=== PATIENT | female | born 1990 | race Caucasian/White ===

== ENCOUNTER 2022-03-31 05:58 | Observation (INO) ==
--- NOTE | 2022-03-29 08:35 | Anesthesiology Consultation ---
Date of Service March 29, 2022 Assessment & Plan (1) Encounter for pre-operative examination: - COVID screening: Per assessment on 03/29: No known COVID-19 positive contacts (x3 weeks) or current COVID-19 related symptoms. Travel screen- [place] for 03/08. Travel to [facility] with family 03/11-03/18. Patient vaccinated. Preop Covid test done 03/28 (S) was negative. - Check test AM DOS Chart Review Chart Review: Acceptable Risk for Surgery (pending evaluation AM DOS) and Patient NOT seen in Pre Admission Testing History Surgery Operation Date: 03/31/22 07:30 Proposed Procedures p Robotic Assisted Laparoscopic Myomectomy and Possible Mini-Laparotomy - Sally Radford Height/Weight Height: 5 ft 9 in Weight: 79.379 kg Allergies Allergy/AdvReac Type Severity Reaction Status Date / Time nickel Allergy Rash Verified 03/24/22 10:21 Medications Home Medications Medication Instructions Recorded Confirmed Last Taken ascorbic acid (vitamin C) 250 mg 500 mg PO QAM 03/24/22 03/24/22 Unknown chewable tablet (Vitamin C) azelaic acid 15 % topical gel 1 applic topical QAM 03/24/22 03/24/22 Unknown [id number] 1 mg 2 tab PO QAM 03/24/22 03/24/22 Unknown tablet Past Medical History Medical History Asthma No inhaler History of phobia "Extreme fear of needles, hasn't passed out yet, but does get light headed and warm. Can't even see a needle or her body reacts." Hx of acne Uterine fibroid Past Surgical History Surgical History Hx of hernia repair As baby Hx of laparoscopy 05/2015, PSH, laparoscopic myomectomy Hx of wisdom tooth extraction Social History Smoking Status: Never smoker Do You Dip or Chew Tobacco: No Hx Alcohol Use: Yes Alcohol type: beer, wine and hard liquor alcohol intake frequency: a few times a month Hx Substance Use: No Testing Laboratory Results 03/28/22 WBC 6.53 H/H 8.8/31.4 (Anemia in setting of heavy menstrual bleeding- reason for upcoming surgery. At anesthesiologist discretion AM DOS if recheck level needed. No comparison/baseline labs) PLATELETS 325 SODIUM 140 POTASSIUM 4.1 CHLORIDE 102 CO2 26 BUN 8 CREATININE 0.7 GLUCOSE 76
[2022-03-31] MEDS ORDERED: ceFAZolin 2000MG 2,000 MG/15 ML SYR IV SCH (06:00)
[2022-03-31] MEDS ORDERED: miSOPROStoL 200 MCG TAB PR SCH (06:00)
[2022-03-31] MEDS ORDERED: TRANEXAMIC ACID IV SCH (06:00)
[2022-03-31] MEDS ORDERED: LACTATED RINGER'S 1,000 ML IV SCH (06:00)
[2022-03-31] MEDS ORDERED: LR 15ML/HR IV SCH (06:00)
[2022-03-31] MEDS ORDERED: SODIUM CHLORIDE 0.9% IV SCH (06:00)
[2022-03-31] MEDS ORDERED: PROPOFOL IV EMULSION 10 MG/ML 20 ML VIAL IV ONE (06:31)
[2022-03-31] MEDS ORDERED: ROCURONIUM BROMIDE 10 MG/ML 5 ML VIAL IV ONE ×2 (06:31→08:06)
[2022-03-31] MEDS ORDERED: fentaNYL citrate 100 MCG/2 ML VIAL ONE ×3 (06:32→12:14)
[2022-03-31] MEDS ORDERED: MIDAZOLAM HCL 1 MG/ML 2ML VIAL ONE (06:32)
--- NOTE | 2022-03-31 06:46 | History & Physical Bridge Note ---
Date of Service March 31, 2022 History & Physical Bridge Note I have examined the patient, reviewed the History & Physical and in the interval since the performance of the History & Physical I have noted the following changes of clinical significance: no changes noted
[2022-03-31] MEDS ORDERED: VASOPRESSIN 20 UNIT/ML VIAL ONE (06:56)
[2022-03-31] MEDS ORDERED: BUPIVACAINE 0.5 % 5 MG/1 ML MPF 30ML VIAL ONE (06:56)
[2022-03-31] MEDS ORDERED: ONDANSETRON INJ 2 MG/ML 2 ML VIAL IV PRN ×2 (07:01→19:33)
[2022-03-31] MEDS ORDERED: ATROPINE SULFATE 0.1 MG/ML 10ML SYR IV PRN (07:01)
[2022-03-31] MEDS ORDERED: HYDROmorphone INJ 2 MG/ML SYR/VIAL IV PRN (07:01)
[2022-03-31] MEDS ORDERED: fentaNYL citrate 100 MCG/2 ML VIAL IV PRN (07:01)
[2022-03-31] MEDS ORDERED: ePHEDrine sulfate 50 MG/ML AMP IV PRN (07:01)
[2022-03-31 07:07] LABS: Pregnancy Test, Serum Negative (Negative)
[2022-03-31] MEDS ORDERED: HYDROmorphone INJ 2 MG/ML SYR/VIAL ONE (07:52)
[2022-03-31] MEDS ORDERED: DEXAMETHASONE SOD INJ 4 MG/ML VIAL ONE (08:08)
[2022-03-31] MEDS ORDERED: ONDANSETRON INJ 2 MG/ML 2 ML VIAL ONE (08:08)
[2022-03-31] MEDS ORDERED: TISSEEL FIBRIN SEALANT 10ML TOP ONE (08:58)
[2022-03-31] MEDS ORDERED: PHENYLEPHRINE 100MCG/ML 5ML SYR ONE (10:44)
[2022-03-31] MEDS ORDERED: ePHEDrine sulfate 50 MG/ML SYR ONE (11:12)
[2022-03-31] MEDS ORDERED: SODIUM CHLORIDE 0.9% 250 ML IV PRN ×2 (11:21→15:19)
[2022-03-31] MEDS ORDERED: ePHEDrine sulfate 50 MG/ML AMP ONE (11:48)
[2022-03-31] MEDS ORDERED: SODIUM CHLORIDE 0.9% 1000ML 1,000 ML IV SCH (13:00)
--- NOTE | 2022-03-31 13:00 | Operative Report ---
Post Operative Report Pre & Post Diagnosis Operation Date: 03/31/22 07:30 Pre-Op Diagnosis: Multifibroid Uterus, Heavy Menstrual Bleeding Post-Op Diagnosis: Multifibroid Uterus, Heavy Menstrual Bleeding I identified the patient and participated in the time-out.: Yes Procedure Operation Date: 03/31/22 07:30 Actual Procedures p Robotic Assisted Laparoscopic Myomectomy and Mini Laparotomy(Not Applicable) - Sally Radford Surgeon Sally Radford Telepathist Rand Stein PA-C Estimated Blood Loss 1,300 Findings See Below 1. Uterus sounded to 10 cm with a uterine sound 2. Uterus approximately 18 cm with a a large anterior fibroid down to the submucosal region 3. Normal appearing fallopian tubes bilaterally 4. Normal appearing right ovary 5. Left ovary with multiple appearing simple cysts 6. Anterior and posterior cul-de-sac were free of adhesions or lesions 7. Normal appearing liver edge Fluids See Anesthesia Report Specimens Uterine fibroid Drains Corea catheter: Urine: 700 ml Anesthesia Type General Complications None Indications 31 yo P0 with an enlarged fibroid uterus and heavy menstrual bleeding desiring surgical management via laparoscopic myomectomy. Description of Procedure Under GA in the dorsal lithotomy position, the patient was prepped and draped in the usual sterile fashion. Beginning at the vagina, a corea catheter was inserted under sterile conditions and left in situ for the remainder of the case. A weighted speculum was then placed in the vagina and with the help of a right angle retractor the cervix was visualized and grasped anteriorly with a single tooth tenaculum.The uterus was sounded to10 cm with a uterine sound.The cervical os was dilated up. An Advincula uterine manipulator was inserted. The weighted speculum was then removed. Attention was then turned to the abdomen. 0.5% marcaine solution was used for infiltration of all port sites. Beginning in the subumbilical area, the skin was first infiltrated with ~ 2 cc of themarcaine solution, then a8mm incision was made through the skin with a #11 blade. Direct entry with the robotic 8 mm trocar, sleeve, and 5 mm laparoscope was made into the peritoneal cavity.The opening pressure was <8 mmHg. The peritoneal cavity was insufflated with CO2 gas to a maximum pressure of 20 mmHg. Examination of the peritoneal cavity revealed no signs of injury from entry and the above notedanatomical structures. The patient was then placed in steep Trendelenburg and four [id number] robotictrocars were placed.The economic research assistant port was placed in the RUQ with a 11 mm trocar.All trocars placed instandard technique, taking care to avoid the epigastric vessels. All trocars were placed under direct visualization with no inadvertent damage to underlying structures. The uterus was upheld from below and revealed an enlarged fibroid uterus, normal fallopian tubes, andovaries with a polycystic appearance. The Parudii robot was docked. The uterine fibroid was then infiltrated with a dilute solution of vasopressin. The fibroid was then scored in a horizontal fashion with monopolar scissors down to the level of the fibroid fibers. The fibroid was then exposed and a laparoscopic single tooth tenaculum was used to grasp the fibroid. With the assistance of the monopolar scissors and the bipolar forceps the fibroid was methodically dissected away from its uterine attachment. Traction counter traction was also used to excise the fibroid. Once the fibroid was excised from its uterine attachment, decision was made to proceed with a mini-laparotomy secondary to fibroid size and bleeding from the uterine bed. The robot was undocked. A small Pfannenstiel skin incision was made with a scalpel. This was carried through the underlying layer of fascia with a bovie. The fascia was incised in the midline and the fascial incision was then extended laterally in both directions with the Gillette scissors. The superior aspect of the fascial incision was then grasped with Cecilia clamps, tented up, and dissected off the underlying layer of rectus muscle bluntly. It was then dissected in the middle with the Gillette scissors. The inferior aspect of this incision was addressed in a similar manner. The rectus muscles were in the midline bluntly. The peritoneum was identified with hemostat clamps, tented up, and entered sharply with the Metzenbaum scissors. The peritoneal incision was then extended superiorly and inferiorly. An Lambert retractor was then placed inside the pelvic cavity. The fibroid was then cored out of the pelvis using an 11 blade scalpel and cutting in a c-fashion until removed completely. Excessive blood loss noted with extensive fibroid removal. Patient was transfused 1 unit PRBCs intraoperatively. The uterus was then exteriorized and closed in three layers with 0 V loc in a running fashions. The uterine serosa was closed with 0 Vicryl in a baseball stitch. Hemostasis was achieved. The uterus placed back into the pelvic cavity and the Lambert retractor was removed. The fascia was closed with 0 Vicryl in a running fashion. Next, the Emilia's fascia was closed with 3-0 Vicryl in an interrupted fashion and the skin was closed with 4-0 monocryl in a running subcuticular fashion. The incision was then dressed with 4 x 4 and bandaged appropriately. Attention was returned laparoscopically, the pelvis was copiously irrigated and suctioned. Tisseal was placed along the uterine incision site. Hemostasis was again appreciated. The RUQ 11 mm trocar (economic research assistant port) was removed. The fascia was closed with 0 Vicryl on a Amadou Nicole. All ports were removed under direct visualization and hemostasis noted. All the incision sites were then closed with 4-0 monocryl sutures in a subcuticular fashion and dermabond. The uterine manipulator was removed without incident. The corea catheter remained in place. At the end of the procedure, all sponges, instruments, and sharps were counted and correct. Estimated blood loss was 1300ml. The patient was taken to recovery in stable condition. My Telepathist was necessary throughout the procedure for uterine manipulation, retraction, handling of the laparoscope and laparoscopic instruments to ensure adequate visualization, gentle tissue manipulation, and hemostasis. Recommend sections for any future pregnancies/deliveries. DO NOT labor (contractions). I attest to the content of the Intraoperative Record and any orders documented therein. Any exceptions are noted below.
--- NOTE | 2022-03-31 13:00 | Post Operative Brief Note ---
Immediate Post Op Note v1 Date of Surgery March 31, 2022 Pre & Post Diagnosis Operation Date: 03/31/22 07:30 Pre-Op Diagnosis: Multifibroid Uterus, Heavy Menstrual Bleeding Post-Op Diagnosis: Multifibroid Uterus, Heavy Menstrual Bleeding I identified the patient and participated in the time-out.: Yes Procedure Operation Date: 03/31/22 07:30 Actual Procedures p Robotic Assisted Laparoscopic Myomectomy and Mini Laparotomy(Not Applicable) - Sally Radford Surgeon Sally Radford Information Clerk Cashier Rand Stein PA-C Estimated Blood Loss 1,300 Findings Consistent with Post-Op Diagnosis Drains Morse Catheter (18 Fr. Morse catheter inserted by Rand Stein PA-C without difficulty. Draining clear yellow urine. Anesthesia to monitor urine output. )
[2022-03-31] MEDS ORDERED: ALBUT/IPRATROP 3MG/0.5MG NEB 3 ML VIAL NEB STA (13:36)
[2022-03-31] MEDS ORDERED: ALBUT/IPRATROP 3MG/0.5MG NEB 3 ML VIAL ONE (13:38)
--- NOTE | 2022-03-31 14:03 | Anesthesiology Progress Note ---
Date of Service March 31, 2022 Anesthesia Post Procedure Vital Signs Vital Signs: Temp Pulse Resp BP BP Pulse Ox O2 Del Method 03/31/22 13:00 108 H 20 123/58 L 100 Oxymask 03/31/22 12:52 36.3 C L 108 H 17 117/50 L 100 Oxymask 03/31/22 06:50 36.5 C 107 H 18 146/95 H 99 Room Air O2 Flow Rate 03/31/22 13:00 5 03/31/22 12:52 5 03/31/22 06:50 Pain Intensity Head: Pain Intensity: 2 Transfer of Care Handoff Completed per policy Notes Mental Status: alert / awake / arousable and participated in evaluation Patient Amnestic to Procedure: Yes Nausea / Vomiting: adequately controlled Pain: adequately controlled Airway Patency, RR, SpO2: stable & adequate BP & HR: see Notes below (pt is tachycadric. most likely 2/2 acute blood loss. pt recieved one unit PRBC. pt is young and can tolerate tachycardia. repeat cbc in a few hours) Hydration State: stable & adequate Anesthetic Complications: no major complications apparent and Pt Satisfied with anesthetic care
[2022-03-31 15:15] LABS: Hematocrit (blood only) 23.7 % (34.1-44.9)
[2022-03-31] MEDS: ACETAMINOPHEN 325 MG TAB PO SCH ×3 (15:25→19:04)
[2022-03-31] MEDS: IBUPROFEN 600 MG TAB PO SCH ×3 (15:26→19:04)
[2022-03-31] MEDS ORDERED: ACETAMINOPHEN 1000 MG/100 ML IV IV PRN (18:48)
[2022-03-31] MEDS: oxyCODONE HCL IR 5 MG TAB (IMMEDIATE RELEASE) PO PRN (19:01)
[2022-03-31] MEDS: SIMETHICONE 80 MG CHEW PO SCH (19:04)
[2022-03-31] MEDS ORDERED: ACETAMINOPHEN 1,000 MG/100 ML VIAL IV PRN (19:15)
[2022-03-31] MEDS: LACTATED RINGER'S 1,000 ML IV SCH (19:49)
[2022-03-31 19:58] LABS: Hematocrit (blood only) 29.2 % (34.1-44.9); Hemoglobin 8.8 g/dl (12.0-16.0); Mean Corpuscular Hgb Conc 30.1 g/dL (32.0-36.0); Mean Corpuscular Volume 76.2 fL (80.0-100.0); Mean Platelet Volume 10.4 fL (9.4-12.3); Platelet Count 338 K/uL (130-400); RDW Coefficient of Variation 22.4 % (11.5-14.5); RDW Standard Deviation 60.8 fL (36.4-46.3); Red Blood Count 3.83 M/uL (3.93-5.22); White Blood Count 20.62 K/ul (4.8-10.8)
[2022-03-31 20:12] LABS: Anisocytosis Present; Basophils # (auto) 0.03 K/uL (0-0.2); Basophils % (auto) 0.1 %; Immature Granulocytes # (auto) 0.08 K/uL (0.00-0.02); Immature Granulocytes % (auto) 0.4 %; Lymphocytes # (auto) 0.68 K/uL (1.2-3.4); Lymphocytes % (auto) 3.3 %; Monocytes # (auto) 1.59 K/uL (0.24-0.82); Monocytes % (auto) 7.7 %; Neutrophils # (auto) 18.24 K/uL (1.4-6.5); Neutrophils % (auto) 88.5 %
[2022-03-31] MEDS ORDERED: PROMETHAZINE HCL 12.5 MG in SODIUM CHLORIDE 0.9% 50 ML IV PRN (21:25)
[2022-03-31] MEDS: MoRPHine SULFATE 4 MG/ML 1 ML CARP\\VIAL IV PRN (21:41)
[2022-03-31] MEDS: DOCUSATE SODIUM 100 MG CAP PO SCH (21:42)
[2022-04-01] MEDS: SIMETHICONE 80 MG CHEW PO SCH ×4 (00:59→17:05)
[2022-04-01] MEDS: MoRPHine SULFATE 4 MG/ML 1 ML CARP\\VIAL IV PRN (02:05)
[2022-04-01] MEDS: LACTATED RINGER'S 1,000 ML IV SCH (04:00)
[2022-04-01] MEDS: ACETAMINOPHEN 325 MG TAB PO SCH ×3 (06:11→17:41)
[2022-04-01 06:14] LABS: Basophils # (auto) 0.02 K/uL (0-0.2); Basophils % (auto) 0.1 %; Hematocrit (blood only) 23.6 % (34.1-44.9); Hemoglobin 7.3 g/dl (12.0-16.0); Immature Granulocytes # (auto) 0.04 K/uL (0.00-0.02); Immature Granulocytes % (auto) 0.2 %; Lymphocytes # (auto) 1.43 K/uL (1.2-3.4); Lymphocytes % (auto) 7.7 %; Mean Corpuscular Hemoglobin 22.7 pg (25.0-34.0); Mean Corpuscular Hgb Conc 30.9 g/dL (32.0-36.0); Mean Corpuscular Volume 73.5 fL (80.0-100.0); Mean Platelet Volume 10.3 fL (9.4-12.3); Monocytes # (auto) 1.51 K/uL (0.24-0.82); Monocytes % (auto) 8.2 %; Neutrophils # (auto) 15.48 K/uL (1.4-6.5); Neutrophils % (auto) 83.8 %; Platelet Count 322 K/uL (130-400); RDW Coefficient of Variation 21.9 % (11.5-14.5); Red Blood Count 3.21 M/uL (3.93-5.22); White Blood Count 18.48 K/ul (4.8-10.8)
[2022-04-01] MEDS ORDERED: SODIUM CHLORIDE 0.9% 250 ML IV PRN (06:31)
[2022-04-01 06:32] LABS: Anisocytosis Present; Hypochromasia Present; Microcytosis Present; Polychromasia 1+
--- NOTE | 2022-04-01 06:36 | Progress Note ---
Date of Service April 01, 2022 Assessment & Plan (1) Postop check: Plan: Postop day#1 s/p Myomectomy Post op blood loss Received 2 units PRBC Urine; >60cc/hr Ht; S1S2 R/r/r Lung ; CTA bilat ABD; NT. ND + BS. Dressing C/D/I Hgb was 8.8 after 2nd unit Hgb this Am is 7.3. Pulse in 100;s Plan transfuse 1 additional unit anticipate disch this PM Admission and Anticipated Discharge Date Admission Date: March 31, 2022 Results & Data ([facility]) Vital Signs (Past 12 Hours) Vital Signs Temp Pulse Resp BP Pulse Ox O2 Del Method 04/01/22 03:25 37.0 C 115 H 19 123/77 99 Room Air 03/31/22 23:30 Room Air 03/31/22 23:30 37.0 C 122 H 21 113/79 100 Room Air
[2022-04-01] MEDS: oxyCODONE HCL IR 5 MG TAB (IMMEDIATE RELEASE) PO PRN ×2 (14:03→17:42)
[2022-04-01] MEDS: DOCUSATE SODIUM 100 MG CAP PO SCH (17:07)
[2022-04-01 18:55] LABS: Hematocrit (blood only) 24.2 % (34.1-44.9); Hemoglobin 7.5 g/dl (12.0-16.0)
--- NOTE | 2022-04-09 07:31 | Discharge Summary ---
Date of Service April 09, 2022 Admission HPI Per Admitting Provider 31 year [id number] who presents with an enlarged fibroid uterus. Patient presented for annual exam in Oct 2021. Provider palpated an enlarged uterus on bimanual exam. Subsequent TVUS was ordered and revealed a 17 cm fibroid uterus with 13 cm of fibroids. Patient with h/o laparoscopic myomectomy [address] [facility]. Patient with a 22 cm uterus at that time. Per operative report the umbilicus was extended and 22 cm fibroid morcellated externally with scalpel. Patient desires to conceive in the near future and would like fibroids removed. Monthly menses, lasting 6 days, with heavy flow on days 2-3. Patient uses both tampons and pads and changing every 1-2 hours. Endorses menstrual migraines. Denies intermenstrual or post-coital bleeding. Admission Exam (Per Admitting) Constitutional WD/WN, vitals as above Respiratory normal respiratory effort, lungs clear to auscultation Gastrointestinal (Abdomen) normal bowel sounds, soft, nontender, no hepatosplenomegaly Discharge Data Procedures Performed Operation Date: 03/31/22 07:30 Actual Procedures p Robotic Assisted Laparoscopic Myomectomy and Mini Laparotomy(Not Applicable) - [facility] (1) Postop check: Postop day#1 s/p Myomectomy Post op blood loss Received 2 units PRBC Urine; >60cc/hr Ht; S1S2 R/r/r Lung ; CTA bilat ABD; NT. ND + BS. Dressing C/D/I Hgb was 8.8 after 2nd unit Hgb this Am is 7.3. Pulse in 100;s Plan transfuse 1 additional unit anticipate disch this PM Plan Patient was discharged home in stable condition with instructions and medications.
== END 2022-04-01 19:30 | disposition home or self-care (01) ==
LOC: ASU 05:58 → 4E1 05:58
DX: Z83.3 Family history of diabetes mellitus; Z53.31 Laparoscopic surgical procedure converted to open procedure; N92.0 Excessive and frequent menstruation with regular cycle; D25.9 Leiomyoma of uterus, unspecified; Z82.49 Family history of ischemic heart disease and other diseases of the circulatory system; Z80.1 Family history of malignant neoplasm of trachea, bronchus and lung

== ENCOUNTER 2023-03-13 07:15 | Inpatient (IN) ==
--- NOTE | 2023-03-07 12:43 | Anesthesiology Consultation ---
Date of Service March 07, 2023 Assessment & Plan (1) Encounter for pre-operative examination: Chart Review Chart Review: licensed direct entry midwife initiated Needle phobia -COVID screening: Per PAT nursing assessment on 03/07/23. No known COVID-19 positive contacts or current COVID-19 related symptoms. Travel screen negative. Patient vaccinated for Covid. At surgeon discretion if preop Covid testing being done. Robotic assisted myomectomy 03/31/22= Done under GA with Grade 1 view (head neutral position) with MAC #3. ETT #7.0. Atraumatic, teeth/tongue/soft tissue intact. History Surgery Operation Date: 03/13/23 10:00 Proposed Procedures p Primary Section - Aaron Hampton MD Height/Weight Height: 5 ft 9 in Weight: 97.522 kg Allergies Allergy/AdvReac Type Severity Reaction Status Date / Time nickel Allergy Rash Verified 03/07/23 12:10 Medications Home Medications Medication Instructions Recorded Confirmed Last Taken ascorbic acid (vitamin C) 250 mg 500 mg PO QAM 03/24/22 03/07/23 03/30/22 08:00 chewable tablet (Vitamin C) azelaic acid 15 % topical gel 1 applic topical QAM 03/24/22 03/07/23 03/29/22 [id number] 1 mg 2 tab PO QAM 03/24/22 03/07/23 03/30/22 08:00 tablet aspirin 81 mg capsule 81 mg PO QPM 03/07/23 03/07/23 Unknown ferrous sulfate 325 mg (65 mg 325 mg PO BID 03/07/23 03/07/23 Unknown iron) tablet (iron) Past Medical History Medical History (Updated 03/07/23 @ 12:46 by Concepción Herr PA-C) Anemia Asthma No inhaler History of phobia "Extreme fear of needles, hasn't passed out yet, but does get light headed and warm. Can't even see a needle or her body reacts." Hx of acne Twin Past Surgical History Surgical History History of myomectomy 03/31/22 [facility] Hx of hernia repair As baby Hx of laparoscopy 05/2015, PSH, laparoscopic myomectomy Hx of wisdom tooth extraction Social History Smoking Status: Never smoker Do You Dip or Chew Tobacco: No Hx Alcohol Use: No Alcohol type: beer, wine and hard liquor alcohol intake frequency: a few times a month Hx Substance Use: No substance use type: does not use
[~2023-03-13 07:15] MED LIST: LACTATED RINGER'S 1,000 ML IV SCH; ceFAZolin 2000MG 2,000 MG/15 ML SYR IV SCH
--- NOTE | 2023-03-13 07:42 | History & Physical Bridge Note ---
Date of Service March 13, 2023 History & Physical Bridge Note I have examined the patient, reviewed the History & Physical and in the interval since the performance of the History & Physical I have noted the following changes of clinical significance: no changes noted
[2023-03-13 08:15] LABS: Basophils # (auto) 0.02 K/uL (0-0.2); Basophils % (auto) 0.3 %; Eosinophils # (auto) 0.23 K/uL (0-0.50); Eosinophils % (auto) 3.5 %; Hematocrit (blood only) 37.8 % (37.0-47.0); Hemoglobin 13.1 g/dl (12.0-16.0); Immature Granulocytes # (auto) 0.02 K/uL (0.01-0.20); Immature Granulocytes % (auto) 0.3 %; Lymphocytes # (auto) 1.51 K/uL (1.2-3.4); Lymphocytes % (auto) 22.7 %; Mean Corpuscular Hemoglobin 32.5 pg (25.0-34.0); Mean Corpuscular Hgb Conc 34.7 g/dL (32.0-36.0); Mean Corpuscular Volume 93.8 fL (80.0-100.0); Mean Platelet Volume 10.6 fL (9.4-12.4); Monocytes # (auto) 0.58 K/uL (0.11-0.59); Monocytes % (auto) 8.7 %; Neutrophils % (auto) 64.5 %; Platelet Count 208 K/uL (130-400); RDW Coefficient of Variation 14.1 % (11.5-14.5); Red Blood Count 4.03 M/uL (4.20-5.40); White Blood Count 6.66 K/ul (4.8-10.8)
[2023-03-13] MEDS ORDERED: SODIUM CHLORIDE 0.9% 250 ML IV PRN (09:13)
[2023-03-13] MEDS ORDERED: CITRIC ACID/SODIUM CITRATE 15 ML UDC PO STA (10:37)
[2023-03-13] MEDS ORDERED: MoRPHine SULFATE PF 1 MG/ML 10 ML AMP/VIAL ONE (13:09)
[2023-03-13] MEDS ORDERED: ONDANSETRON INJ 2 MG/ML 2 ML VIAL IV PRN ×2 (14:37→15:09)
[2023-03-13] MEDS ORDERED: BENZOCAINE 20% SPRY 85 APPLN/85 GM CAN EXT PRN (14:37)
[2023-03-13] MEDS ORDERED: HYDROCORTISONE ACETATE 25 MG SUPP PR PRN (14:37)
[2023-03-13] MEDS ORDERED: SENNA 8.6 MG TAB PO PRN (14:37)
[2023-03-13] MEDS ORDERED: MAGNESIUM HYDROXIDE SUSP 30 ML UDC PO PRN (14:37)
[2023-03-13] MEDS ORDERED: PHENYLEPHRINE 100MCG/ML 5ML SYR ONE (14:42)
[2023-03-13] MEDS ORDERED: OXYTOCIN 10 UNITS/ML VIAL ONE (14:42)
[2023-03-13] MEDS ORDERED: METHYLERGONOVINE MALEATE 0.2 MG/ML AMP ONE (14:44)
[2023-03-13] MEDS ORDERED: LACTATED RINGER'S 1,000 ML IV SCH (14:45)
[2023-03-13] MEDS ORDERED: HYDROmorphone INJ 0.5 MG/0.5 ML SYR IV PRN (15:09)
[2023-03-13] MEDS ORDERED: LACTATED RINGER'S 500 ML IV PRN (15:09)
[2023-03-13] MEDS ORDERED: METOCLOPRAMIDE HCL 10 MG in SODIUM CHLORIDE 0.9% 50 ML IV PRN (15:09)
[2023-03-13] MEDS ORDERED: MoRPHine SULFATE PF 1 MG/ML 10 ML AMP/VIAL INT SPINAL ONE (15:09)
[2023-03-13] MEDS ORDERED: NALOXONE HCL 1 MG in SODIUM CHLORIDE 0.9% 1000ML 1,000 ML IV PRN (15:09)
[2023-03-13] MEDS ORDERED: MEPERIDINE HCL 25 MG/ML CARP/VIAL IV PRN (15:09)
[2023-03-13] MEDS ORDERED: MoRPHine SULFATE 2 MG/ML CARP IV PRN (15:09)
[2023-03-13] MEDS ORDERED: NALBUPHINE HCL INJ 10 MG/ML AMP IV PRN (15:09)
[2023-03-13] MEDS ORDERED: NALOXONE HCL 0.08 MG in SYRINGE 1.8 ML IV PRN (15:09)
[2023-03-13] MEDS ORDERED: PROMETHAZINE HCL 12.5 MG in SODIUM CHLORIDE 0.9% 50 ML IV PRN (15:09)
[2023-03-13] MEDS ORDERED: diphenhydrAMINE 50 MG/ML VIAL IV PRN (15:09)
[2023-03-13] MEDS ORDERED: ePHEDrine sulfate 50 MG/ML AMP IV PRN (15:09)
[2023-03-13] MEDS ORDERED: NALOXONE HCL 0.4 MG/1 ML VIAL/CARP IV PRN (15:09)
[2023-03-13] MEDS ORDERED: SODIUM CHLORIDE 0.9% 1000ML 1,000 ML IV SCH (15:15)
[2023-03-13] MEDS ORDERED: DC INTRASPINAL MORPHINE SCH (15:15)
[2023-03-13] MEDS ORDERED: NO NARCOTICS OR SEDATIVES SCH (15:15)
--- NOTE | 2023-03-13 15:15 | Post Operative Brief Note ---
Immediate Post Op Note v1 Date of Surgery March 13, 2023 Pre & Post Diagnosis Operation Date: 03/13/23 09:20 Pre-Op Diagnosis: Twin , History of Myomectomy Post-Op Diagnosis: Same as pre-op I identified the patient and participated in the time-out.: Yes Procedure Operation Date: 03/13/23 09:20 Actual Procedures p Primary Section; Live male child "A" at 1347, Live male child "B" at 1350 (Bilateral) - Aaron Hampton MD Surgeon Aaron Hampton MD Transit Operator ANABEL Ayers Estimated Blood Loss 600 Findings Consistent with Post-Op Diagnosis Twin A male vertex Apgars 8/9 weight 7#9.3 oz. Twin B male double footling breech Apgars 8/9 weight 6#13 oz. Fluids LR 1500 ml. Specimens Placenta Drains Morse Catheter (Inserted after spinal anesthesia; patient and draining during procedure) Anesthesia Type Spinal Complications none Disposition Accompanied Patient To Recovery: Yes Overlapping Procedure I was present for: the critical portions of procedure. I was immediately available: during the entire case. Back up surgeon: was not required during procedure.
[2023-03-13] MEDS ORDERED: LACTATED RINGER'S 1,000 ML IV ONE ×2 (16:34→18:11)
[2023-03-13] MEDS: KETOROLAC 30 MG/ML VIAL IV PRN (17:13)
[2023-03-13] MEDS: OXYTOCIN 20 UNITS in LACTATED RINGER'S 1,000 ML IV SCH (17:36)
[2023-03-13 17:49] LABS: Hematocrit (blood only) 28.9 % (37.0-47.0); Hemoglobin 9.8 g/dl (12.0-16.0); Mean Corpuscular Hemoglobin 32.7 pg (25.0-34.0); Mean Corpuscular Hgb Conc 33.9 g/dL (32.0-36.0); Mean Corpuscular Volume 96.3 fL (80.0-100.0); Platelet Count 233 K/uL (130-400); RDW Coefficient of Variation 14.3 % (11.5-14.5); White Blood Count 16.98 K/ul (4.8-10.8)
--- NOTE | 2023-03-13 18:13 | Post Operative Brief Note ---
Immediate Post Op Note v1 Date of Surgery March 13, 2023 Pre & Post Diagnosis Operation Date: 03/13/23 09:20 Pre-Op Diagnosis: Twin , History of Myomectomy Post-Op Diagnosis: Same as pre-op I identified the patient and participated in the time-out.: Yes Procedure Operation Date: 03/13/23 09:20 Actual Procedures p Primary Section; Live male child "A" at 1347, Live male child "B" at 1350 (Bilateral) - Aaron Hampton MD Surgeon Aaron Hampton MD Door Frame Builder ANABEL Ayers Estimated Blood Loss 600 Findings live Specimens Placenta Drains Morse Catheter (Inserted after spinal anesthesia; patient and draining during procedure) Anesthesia Type Spinal
[2023-03-13] MEDS: SIMETHICONE 80 MG CHEW PO SCH ×2 (18:38→22:38)
--- NOTE | 2023-03-13 18:49 | Operative Report ---
Post Operative Report Pre & Post Diagnosis Operation Date: 03/13/23 09:20 Pre-Op Diagnosis: Twin , History of Myomectomy Post-Op Diagnosis: Same as pre-op I identified the patient and participated in the time-out.: Yes Procedure Operation Date: 03/13/23 09:20 Actual Procedures p Primary Section; Live male child "A" at 1347, Live male child "B" at 1350 (Bilateral) - Aaron Hampton MD Surgeon Aaron Hampton MD Mica Plate Layer Hand ANABEL Ayers Estimated Blood Loss 600 Findings Consistent with Post-Op Diagnosis Fluids LR 1500 ml. Specimens Placenta Drains Morse Anesthesia Type Spinal Complications none Disposition Accompanied Patient To Recovery: Yes Indications Twins di/di at 37.1 weeks prior Myomectomy x2 Description of Procedure Dr. Hernandez dictating operative note on Indira Jan under satisfactory spinal anesthesia the patient was prepped draped usual sterile fashion antibiotics were given preop and timeout was called prior to the start of procedure a low Pfannenstiel incision through her prior scar from previous myomectomies was performed entering into the abdominal cavity in successive layers without difficulty upon entry into the peritoneal cavity pickups with teeth and Metzenbaum scissors were then used to develop a bladder flap a low segment segment transverse incision over the lower uterine segment was made the incision was widened in the AP diameter. Baby A was on the right amniotic sac was nicked clear fluid was noted male in the vertex presentation and with the aid of fundal pressure delivering a live with Apgars of 8 and 9 weight was 7 pounds 9.3 ounces baby handed to stock cutter present for the delivery the placenta was tagged with a Anu clamp. Second baby B found to be high in the fundus on the left was found to be in the double footling breech presentation, attempt was made to try to convert this to a vertex with no success the amniotic sac was then ruptured clear fluid was noted the was then delivered with the aid of fundal pressure after grasping both feet delivering a live male Apgars were 8 and 9 weight 6 pounds 13 ounces the cord was cut doubly clamped and cut and cord B was tagged with a River clamp. There was some bleeding noted the placenta was then removed manually and intact uterus was then exteriorized ring forceps were then placed on both angles the inferior margin of the ring to dilate the cervix the uterus closed in a double layer closure it was noted that the myometrium was extremely thick and the cavity was somewhat deformed from previous surgery. The uterus was closed in a double layer closure with 0 Vicryl suture in a continuous fashion followed by a second deeper cutting suture of 0 Vicryl suture tubes ovaries bilaterally were found to be within normal limits the contents of the pelvic and abdominal cavity were then irrigated to clear the initial sponge needle instrument count were found to be correct the muscle was then reapproximated using interrupted 0 Vicryl suture the fascia was then reapproximated from both ends using #1 Vicryl. Subcuticular layer was then irrigated and closed with 3-0 plain suture interrupted. And the skin was then reapproximated with 4-0 Monocryl suture. Telfa and ABD dressing were applied. The initial sponge and instrument count were found to be correct and then the final count was correct at the end of the procedure estimated blood loss 600 mL the patient was then placed supine on stretcher taken recovery room in stable condition end of dictation operative note for Indira Montoya thank you I attest to the content of the Intraoperative Record and any orders documented t herein. Any exceptions are noted below. Cyndi LITTLE was necessary to provide ASSISTANCE AT THE INCLUDING RETRACTION, EXPOSURE AND HELP WITH CLOSURE OF THE UTERUS AND ABDOMEN
[2023-03-13 22:06] LABS: Hematocrit (blood only) 23.1 % (37.0-47.0)
[2023-03-13] MEDS: DOCUSATE SODIUM 100 MG CAP PO SCH (22:38)
[2023-03-14] MEDS: KETOROLAC 30 MG/ML VIAL IV PRN (02:08)
[2023-03-14] MEDS: OXYTOCIN 20 UNITS in LACTATED RINGER'S 1,000 ML IV SCH (02:33)
[2023-03-14] MEDS ORDERED: ceFAZolin 2000MG 2,000 MG/15 ML SYR IV SCH (06:00)
[2023-03-14 08:02] LABS: Hematocrit (blood only) 16.1 % (37.0-47.0); Hemoglobin 5.4 g/dl (12.0-16.0); Mean Corpuscular Hemoglobin 33.1 pg (25.0-34.0); Mean Corpuscular Hgb Conc 33.5 g/dL (32.0-36.0); Mean Corpuscular Volume 98.8 fL (80.0-100.0); Platelet Count 141 K/uL (130-400); RDW Coefficient of Variation 14.7 % (11.5-14.5); RDW Standard Deviation 52.1 fL (36.4-46.3); Red Blood Count 1.63 M/uL (4.20-5.40)
[2023-03-14] MEDS ORDERED: SODIUM CHLORIDE 0.9% 250 ML IV PRN ×4 (08:11→19:43)
[2023-03-14 08:21] LABS: Basophils # (auto) 0.02 K/uL (0-0.2); Basophils % (auto) 0.1 %; Eosinophils # (auto) 0.01 K/uL (0-0.50); Eosinophils % (auto) 0.1 %; Immature Granulocytes # (auto) 0.08 K/uL (0.01-0.20); Immature Granulocytes % (auto) 0.5 %; Lymphocytes # (auto) 1.69 K/uL (1.2-3.4); Lymphocytes % (auto) 9.9 %; Monocytes # (auto) 1.18 K/uL (0.11-0.59); Monocytes % (auto) 6.9 %; Neutrophils # (auto) 14.02 K/uL (1.40-6.50); Neutrophils % (auto) 82.5 %; Polychromasia 1+
[2023-03-14] MEDS: DOCUSATE SODIUM 100 MG CAP PO SCH ×2 (08:46→21:10)
[2023-03-14] MEDS: PRENATAL VITAMIN 1 TAB PO SCH (08:46)
[2023-03-14] MEDS: FERROUS SULFATE 325 MG TAB PO SCH (08:46)
[2023-03-14] MEDS: SIMETHICONE 80 MG CHEW PO SCH ×4 (08:46→21:10)
--- NOTE | 2023-03-14 08:51 | Obstetrical Progress Note ---
Date of Service March 14, 2023 Assessment & Plan (1) Acute blood loss anemia (ABLA): (2) Postcesarean section: Plan Type and cross match 2 Units PRBC CBC 2 Hr after the second unit Ambulation after the transfusion Consent obtained. Discussed the risks and benefits of the transfusion, Pt verbalized understanding all the explanation, all her questions answered. Day #:: 1 Subjective Ambulation: limited ambulation Review of Systems All systems reviewed & are unremarkable except as noted in HPI & below Respiratory: + as per Subjective / HPI Denies shortness of breadth at this time Cardiovascular: + as per Subjective / HPI Gastrointestinal: + as per Subjective / HPI Genitourinary (female): + as per Subjective / HPI Physical Exam Constitutional WD/WN, vitals as above Respiratory normal respiratory effort, lungs clear to auscultation Cardiovascular RRR, no murmur, no edema Gastrointestinal (Abdomen) normal bowel sounds, soft, nontender, no hepatosplenomegaly Inspection/Auscultation: abdomen normal to inspection and normal bowel sounds Percussion/Palpation: + abdomen tender (non tender, incision clean, dry, intact ) and abdomen soft Skin no rashes, warm and dry Psychiatric A+Ox3, euthymic affect Genitourinary Denies heavy vaginal bleeding, normal lochia. Results & Data Vital Signs (Past 12 Hours) Vital Signs Temp Pulse Resp BP Pulse Ox O2 Del Method 03/14/23 06:17 16 100 03/14/23 05:27 16 97 03/14/23 04:22 18 98 03/14/23 02:00 16 98 03/14/23 03:25 36.9 C 117 H 18 120/73 100 Room Air 03/14/23 03:25 18 100 03/14/23 01:15 18 100 03/14/23 00:20 16 98 03/13/23 23:30 16 96 03/13/23 22:20 20 100 03/13/23 21:55 37.0 C 126 H 18 113/74 99 Room Air 03/13/23 21:55 18 99
[2023-03-14] MEDS ORDERED: MEPERIDINE HCL 50 MG/ML CARP IV PRN (09:10)
[2023-03-14] MEDS ORDERED: PROMETHAZINE HCL 25 MG in SODIUM CHLORIDE 0.9% 50 ML IV PRN (09:10)
[2023-03-14] MEDS ORDERED: diphenhydrAMINE Capsule 25 MG CAP PO PRN (09:10)
[2023-03-14] MEDS ORDERED: diphenhydrAMINE 50 MG/ML VIAL IV PRN (09:10)
[2023-03-14] MEDS ORDERED: KETOROLAC 30 MG/ML VIAL IV PRN (09:10)
[2023-03-14] MEDS: oxyCODONE/ACETAMINOPHEN 5mg/325mg TAB PO PRN ×3 (11:07→21:10)
[2023-03-14] MEDS: IBUPROFEN 600 MG TAB PO PRN ×3 (11:07→21:10)
[2023-03-14 16:54] LABS: Hematocrit (blood only) 18.4 % (37.0-47.0); Hemoglobin 6.4 g/dl (12.0-16.0); Mean Corpuscular Hgb Conc 34.8 g/dL (32.0-36.0); Mean Platelet Volume 10.9 fL (9.4-12.4); Platelet Count 128 K/uL (130-400); RDW Coefficient of Variation 15.5 % (11.5-14.5); RDW Standard Deviation 51.3 fL (36.4-46.3); White Blood Count 15.77 K/ul (4.8-10.8)
[2023-03-14 17:00] LABS: Basophils # (auto) 0.03 K/uL (0-0.2); Basophils % (auto) 0.2 %; Eosinophils # (auto) 0.02 K/uL (0-0.50); Eosinophils % (auto) 0.1 %; Immature Granulocytes # (auto) 0.08 K/uL (0.01-0.20); Immature Granulocytes % (auto) 0.5 %; Lymphocytes # (auto) 1.19 K/uL (1.2-3.4); Lymphocytes % (auto) 7.5 %; Monocytes # (auto) 0.91 K/uL (0.11-0.59); Monocytes % (auto) 5.8 %; Neutrophils # (auto) 13.54 K/uL (1.40-6.50); Neutrophils % (auto) 85.9 %; RBC Morphology Unremarkable
[2023-03-14] MEDS ORDERED: bisacodyL 5 MG TABEC PO SCH (20:00)
[2023-03-15] MEDS: IBUPROFEN 600 MG TAB PO PRN ×3 (05:02→21:13)
[2023-03-15] MEDS: oxyCODONE/ACETAMINOPHEN 5mg/325mg TAB PO PRN (05:02)
[2023-03-15 06:29] LABS: Hematocrit (blood only) 21.1 % (37.0-47.0); Hemoglobin 7.4 g/dl (12.0-16.0); Mean Corpuscular Hemoglobin 31.5 pg (25.0-34.0); Mean Corpuscular Hgb Conc 35.1 g/dL (32.0-36.0); Mean Corpuscular Volume 89.8 fL (80.0-100.0); Mean Platelet Volume 10.3 fL (9.4-12.4); Nucleated RBC # (auto) 0.02 K/uL (0-0.12); Nucleated RBC % (auto) 0.2 %; Platelet Count 108 K/uL (130-400); RDW Coefficient of Variation 15.9 % (11.5-14.5); RDW Standard Deviation 50.2 fL (36.4-46.3); Red Blood Count 2.35 M/uL (4.20-5.40); White Blood Count 11.72 K/ul (4.8-10.8)
[2023-03-15 06:49] LABS: Basophils # (auto) 0.02 K/uL (0-0.2); Basophils % (auto) 0.2 %; Eosinophils # (auto) 0.13 K/uL (0-0.50); Eosinophils % (auto) 1.1 %; Immature Granulocytes # (auto) 0.08 K/uL (0.01-0.20); Immature Granulocytes % (auto) 0.7 %; Lymphocytes # (auto) 1.95 K/uL (1.2-3.4); Lymphocytes % (auto) 16.6 %; Monocytes # (auto) 0.73 K/uL (0.11-0.59); Monocytes % (auto) 6.2 %; Neutrophils # (auto) 8.81 K/uL (1.40-6.50); Neutrophils % (auto) 75.2 %; RBC Morphology Unremarkable
[2023-03-15] MEDS: FERROUS SULFATE 325 MG TAB PO SCH (08:57)
[2023-03-15] MEDS: DOCUSATE SODIUM 100 MG CAP PO SCH ×2 (08:57→21:13)
[2023-03-15] MEDS: SIMETHICONE 80 MG CHEW PO SCH ×4 (08:57→21:13)
[2023-03-15] MEDS: PRENATAL VITAMIN 1 TAB PO SCH (08:57)
--- NOTE | 2023-03-15 11:35 | Obstetrical Progress Note ---
Date of Service March 15, 2023 Subjective Ambulation: ambulating normally Voiding: no voiding problems Passing Gas:: Yes Diet Tolerance:: regular diet Lochia:: Small Feeding Type:: breast feeding Current Pain Level(1-10): 0 doing well. no bleeding reported Physical Exam Constitutional WD/WN, vitals as above Gastrointestinal (Abdomen) Inspection/Auscultation: abdomen normal to inspection incision c/d/i Musculoskeletal Extremities: extremities normal to inspection Skin no rashes, warm and dry Neurologic patellar DTR's 2+ bilat, sensation intact Psychiatric A+Ox3, euthymic affect Results & Data Vital Signs (Past 12 Hours) Vital Signs Temp Pulse Pulse Resp BP BP Pulse Ox 03/15/23 08:00 36.5 C 104 H 18 129/77 98 03/15/23 04:45 36.6 C 105 H 18 119/81 100 03/15/23 03:35 36.5 C 94 H 16 117/79 100 03/15/23 02:35 36.5 C 92 H 17 114/78 98 03/15/23 02:05 36.8 C 92 H 16 104/68 98 03/15/23 01:50 36.6 C 99 H 17 110/68 99 03/15/23 01:29 36.7 C 98 H 17 120/75 97 03/14/23 23:55 36.9 C 103 H 18 119/74 98 O2 Del Method 03/15/23 08:00 Room Air 03/15/23 04:45 03/15/23 03:35 03/15/23 02:35 03/15/23 02:05 03/15/23 01:50 03/15/23 01:29 03/14/23 23:55 Laboratory Results Laboratory Results - last 72 hr 03/13/23 03/13/23 03/13/23 07: 07:40 07:43 WBC 6.66 RBC 4.03 L Hgb 13.1 Hct 37.8 MCV 93.8 MCH 32.5 MCHC 34.7 RDW Std Deviation 48.0 H RDW Coeff of Octavio 14.1 Plt Count 208 MPV 10.6 Immature Gran % (Auto) 0.3 Neut % (Auto) 64.5 Lymph % (Auto) 22.7 [place] % (Auto) 8.7 Eos % (Auto) 3.5 Baso % (Auto) 0.3 Neut # (Auto) 4.30 Lymph # (Auto) 1.51 [place] # (Auto) 0.58 Eos # (Auto) 0.23 Baso # (Auto) 0.02 Immature Gran # (Auto) 0.02 Absolute Nucleated RBC Nucleated RBC % (auto) RBC Morphology Polychromasia SARS-CoV-2, RNA, NAAT NEGATIVE Blood Type O Positive Antibody Screen NEGATIVE Crossmatch See Detail 03/13/23 03/13/23 03/14/23 16:41 21:28 07:03 WBC 16.98 H D 17.00 H RBC 3.00 L 1.63 L Hgb 9.8 L D 8.0 L 5.4 L* Hct 28.9 L 23.1 L 16.1 L* MCV 96.3 98.8 MCH 32.7 33.1 MCHC 33.9 33.5 RDW Std Deviation 50.0 H 52.1 H RDW Coeff of Octavio 14.3 14.7 H Plt Count 233 141 MPV 11.0 11.0 Immature Gran % (Auto) 0.5 Neut % (Auto) 82.5 Lymph % (Auto) 9.9 [place] % (Auto) 6.9 Eos % (Auto) 0.1 Baso % (Auto) 0.1 Neut # (Auto) 14.02 H Lymph # (Auto) 1.69 [place] # (Auto) 1.18 H Eos # (Auto) 0.01 Baso # (Auto) 0.02 Immature Gran # (Auto) 0.08 Absolute Nucleated RBC Nucleated RBC % (auto) RBC Morphology Polychromasia 1+ SARS-CoV-2, RNA, NAAT Blood Type Antibody Screen Crossmatch 03/14/23 03/15/23 15:49 05:57 WBC 15.77 H 11.72 H RBC 2.00 L 2.35 L Hgb 6.4 L* 7.4 L Hct 18.4 L* 21.1 L MCV 92.0 D 89.8 MCH 32.0 31.5 MCHC 34.8 35.1 RDW Std Deviation 51.3 H 50.2 H RDW Coeff of Octavio 15.5 H 15.9 H Plt Count 128 L 108 L MPV 10.9 10.3 Immature Gran % (Auto) 0.5 0.7 Neut % (Auto) 85.9 75.2 Lymph % (Auto) 7.5 16.6 [place] % (Auto) 5.8 6.2 Eos % (Auto) 0.1 1.1 Baso % (Auto) 0.2 0.2 Neut # (Auto) 13.54 H 8.81 H Lymph # (Auto) 1.19 L 1.95 [place] # (Auto) 0.91 H 0.73 H Eos # (Auto) 0.02 0.13 Baso # (Auto) 0.03 0.02 Immature Gran # (Auto) 0.08 0.08 Absolute Nucleated RBC 0.02 Nucleated RBC % (auto) 0.2 RBC Morphology Unremarkable Unremarkable Polychromasia SARS-CoV-2, RNA, NAAT Blood Type Antibody Screen Crossmatch
[2023-03-15] MEDS ORDERED: IRON SUCROSE 400 MG in SODIUM CHLORIDE 0.9% 250 ML IV ONE (12:00)
[2023-03-15] MEDS ORDERED: bisacodyL 10 MG SUPP PR PRN (14:37)
[2023-03-16] MEDS: ACETAMINOPHEN 325 MG TAB PO PRN ×2 (05:57→14:17)
[2023-03-16] MEDS: DOCUSATE SODIUM 100 MG CAP PO SCH (08:54)
[2023-03-16] MEDS: IBUPROFEN 600 MG TAB PO PRN (08:54)
[2023-03-16] MEDS: FERROUS SULFATE 325 MG TAB PO SCH (08:54)
[2023-03-16] MEDS: SIMETHICONE 80 MG CHEW PO SCH ×2 (08:54→13:00)
[2023-03-16] MEDS: PRENATAL VITAMIN 1 TAB PO SCH (08:54)
--- NOTE | 2023-03-16 09:31 | Obstetrical Progress Note ---
Date of Service March 16, 2023 Subjective Ambulation: ambulating normally Voiding: no voiding problems Passing Gas:: Yes Diet Tolerance:: regular diet Lochia:: Small Feeding Type:: breast feeding Current Pain Level(1-10): 0 doing much better this AM no SOB or dizziness Physical Exam Constitutional WD/WN, vitals as above Gastrointestinal (Abdomen) Inspection/Auscultation: abdomen normal to inspection incision c/d/i fundus firm below U and non-tender abdomen Musculoskeletal Extremities: extremities normal to inspection Skin no rashes, warm and dry Neurologic patellar DTR's 2+ bilat, sensation intact Psychiatric A+Ox3, euthymic affect Results & Data Vital Signs (Past 12 Hours) Vital Signs Temp Pulse Resp BP Pulse Ox O2 Del Method 03/15/23 22:59 36.9 C 93 H 18 135/80 96 Room Air Laboratory Results 03/13/23 03/13/23 03/13/23 07:26 07:40 07:43 WBC 6.66 RBC 4.03 L Hgb 13.1 Hct 37.8 MCV 93.8 MCH 32.5 MCHC 34.7 RDW Std Deviation 48.0 H RDW Coeff of Octavio 14.1 Plt Count 208 MPV 10.6 Immature Gran % (Auto) 0.3 Neut % (Auto) 64.5 Lymph % (Auto) 22.7 [place] % (Auto) 8.7 Eos % (Auto) 3.5 Baso % (Auto) 0.3 Neut # (Auto) 4.30 Lymph # (Auto) 1.51 [place] # (Auto) 0.58 Eos # (Auto) 0.23 Baso # (Auto) 0.02 Immature Gran # (Auto) 0.02 Absolute Nucleated RBC Nucleated RBC % (auto) RBC Morphology Polychromasia SARS-CoV-2, RNA, NAAT NEGATIVE Blood Type O Positive Antibody Screen NEGATIVE Crossmatch See Detail 03/13/23 03/13/23 03/14/23 16:41 21:28 07:03 WBC 16.98 H D 17.00 H RBC 3.00 L 1.63 L Hgb 9.8 L D 8.0 L 5.4 L* Hct 28.9 L 23.1 L 16.1 L* MCV 96.3 98.8 MCH 32.7 33.1 MCHC 33.9 33.5 RDW Std Deviation 50.0 H 52.1 H RDW Coeff of Octavio 14.3 14.7 H Plt Count 233 141 MPV 11.0 11.0 Immature Gran % (Auto) 0.5 Neut % (Auto) 82.5 Lymph % (Auto) 9.9 [place] % (Auto) 6.9 Eos % (Auto) 0.1 Baso % (Auto) 0.1 Neut # (Auto) 14.02 H Lymph # (Auto) 1.69 [place] # (Auto) 1.18 H Eos # (Auto) 0.01 Baso # (Auto) 0.02 Immature Gran # (Auto) 0.08 Absolute Nucleated RBC Nucleated RBC % (auto) RBC Morphology Polychromasia 1+ SARS-CoV-2, RNA, NAAT Blood Type Antibody Screen Crossmatch 03/14/23 03/15/23 15:49 05:57 WBC 15.77 H 11.72 H RBC 2.00 L 2.35 L Hgb 6.4 L* 7.4 L Hct 18.4 L* 21.1 L MCV 92.0 D 89.8 MCH 32.0 31.5 MCHC 34.8 35.1 RDW Std Deviation 51.3 H 50.2 H RDW Coeff of Octavio 15.5 H 15.9 H Plt Count 128 L 108 L MPV 10.9 10.3 Immature Gran % (Auto) 0.5 0.7 Neut % (Auto) 85.9 75.2 Lymph % (Auto) 7.5 16.6 [place] % (Auto) 5.8 6.2 Eos % (Auto) 0.1 1.1 Baso % (Auto) 0.2 0.2 Neut # (Auto) 13.54 H 8.81 H Lymph # (Auto) 1.19 L 1.95 [place] # (Auto) 0.91 H 0.73 H Eos # (Auto) 0.02 0.13 Baso # (Auto) 0.03 0.02 Immature Gran # (Auto) 0.08 0.08 Absolute Nucleated RBC 0.02 Nucleated RBC % (auto) 0.2 RBC Morphology Unremarkable Unremarkable Polychromasia SARS-CoV-2, RNA, NAAT Blood Type Antibody Screen Crossmatch
[2023-03-16 09:43] LABS: Mean Corpuscular Hemoglobin 31.4 pg (25.0-34.0); Mean Corpuscular Hgb Conc 33.3 g/dL (32.0-36.0); Mean Corpuscular Volume 94.1 fL (80.0-100.0); Mean Platelet Volume 10.8 fL (9.4-12.4); Nucleated RBC # (auto) 0.09 K/uL (0-0.12); Nucleated RBC % (auto) 1.1 %; Platelet Count 138 K/uL (130-400); RDW Standard Deviation 54.3 fL (36.4-46.3); Red Blood Count 2.55 M/uL (4.20-5.40); White Blood Count 8.42 K/ul (4.8-10.8)
--- NOTE | 2023-03-27 17:14 | Discharge Summary ---
Date of Service March 27, 2023 Admission HPI Per Admitting Provider Dr. Smallwood dictating discharge summary on Indira Montoya patient presents for primary section for twins at 37 weeks and 1 day for previous myomectomy. Twins were delivered by twin A was male Apgars 8 and 9 vertex with weight 7 pounds 9.3 ounces twin B was delivered in the double footling breech presentation live male Apgars 8 and 9 weight 6 pounds 13 ounces the patient was subsequently discharged home on day 3 she was stable home-going instructions were given condition on discharge is good regular diet on discharge patient was subsequently given Percocet for pain and Motrin for faraz n we will follow-up with the office in 1 week for incision check and of discharge summary on Indira Montoya thank you Discharge Data Consultations 03/13/23 07:23 Consult Anesthesiology Stat Procedures Performed Operation Date: 03/13/23 09:20 Actual Procedures p Primary Section; Live male child "A" at 1347, Live male child "B" at 1350 (Bilateral) - Aaron Hampton MD Discharge Plan Discharge Items Patient Disposition: Home - Self-Care Reason For Visit: Twin , History of Myomectomy Discharge Diagnosis: Twin at term delivered by Condition on Discharge: Good Activity: As commented below Lifting: No more than 10 pounds Bathing: May shower/bathe in 3 days Sexual Activity: Wait until after follow-up appointment Exercise/Sports: Gradually increase as tolerated Driving/Machine Use: resume in 1 week Non-emergency contact: Primary Care Provider Call non-emergency contact if: you have any medication questions, your pain is not controlled, you have a fever and your wound has increased redness Follow-up/Referrals: Sally Radford MD [Primary Care Provider] - Diet: Regular OB Addtl Attending Provider Instructions: ACTIVITY RECOMMENDATIONS: * Gradual return to full activity over the next 2-3 weeks. * No lifting - nothing heavier than baby over the next 2-3 weeks. * Do not engage in vigorous exercise, sexual activity or sports until cleared by your physician. * Do not drive or operate any motorized equipment until cleared by your physician. * You may shower/bathe daily. BREAST CARE: If you are not breast feeding: * Wear a supportive bra 24 hours a day for one to two weeks. * Avoid stimulating your breasts and nipples as much as possible during the first few weeks after delivery. * When taking a shower, have the warm water hit your back, not breasts. * When your breasts feel full, apply ice packs. Usually three to four times a day helps ease the discomfort. * Take a mild pain medication (Tylenol/Motrin) when you are uncomfortable. If breast feeding: * Use breast milk to lubricate nipples. Lansinoh cream may be used for sore nipples. You do not need to remove cream prior to breast feeding. If using a different brand of cream, check the label for directions regarding removal of cream p rior to nursing. * Wear a supportive bra. * If having problems with breasts or breast feeding, call a healthcare market consultant or your health care provider. OVER THE COUNTER MEDICATION: * For discomfort or pain, you may use Acetaminophen (Tylenol), Ibuprofen (Advil), or Naproxen (Aleve) following the package directions. * For constipation you may use Colace following the package directions. SPECIAL CARE INSTRUCTIONS: When you are discharged from the hospital, it is important for you to follow the instructions listed below: * During the first week at home, you should be able to care for yourself and your baby. In addition, the usual light household activities are encouraged. * Limit your activities to the way you feel. Do not try to clean the house or move furniture. Be sensible. * If you actively engage in sports and have done so up until the time of your delivery, you may resume these activities as soon as you feel able. This may take up to one month or even longer. Use good judgment. * Continue to take your vitamins for at least six weeks after the of your baby. * Your diet need not be limited unless you were on a special diet before your delivery. Breast-feeding mothers need around 2500 calories per day and at least 64-80 ounces of fluid per day (8 to 10 glasses). * You should eat foods from the four major food groups. Crash diets or fad diets are to be avoided. Eating lean meats, fresh fruits and vegetables, low-fat dairy products, high fiber foods and a regular exercise program, will help you get back to your pre- weight without putting your health at risk. * Constipation is sometimes a problem after delivery. Take a mild laxative as needed. If breast feeding, Milk of Magnesia is acceptable to use. You may use a suppository or Fleets enema if no episiotomy. * A daily shower or tub bath is suggested. Be sure to thoroughly and gently dry the perineum. * A bloody vaginal discharge will usually continue until around four weeks post . A small amount of bleeding may continue for as long as six weeks. Vaginal discharge changes from the bright red bleeding after delivery to pink then brownish and finally yellowish-pink before becoming white and disappearing. * Bleeding may increase with activity. Your first period may come in 4-8 weeks. If you are breast feeding, your period may be delayed even longer. * Amaya (sex) can begin whenever both you and your partner feel comfortable and do not have any form of genital infection. It is recommended that you wait at least six weeks for internal and external healing to occur. If you have questions, please talk to your health care practitioner. A condom should be used to prevent infection and . * Foreplay, gentle intercourse and lubrication is very important the first several times to prevent pain. A water-based lubricant such as K-Y jelly or Astroglide may be used. * Tampons and/or Douching should be avoided until after six weeks check-up. * If you have RH negative blood and your baby is RH positive, you will receive RHOGAM by injection prior to discharge. The nurse will give you a card to keep with you that has the date and place that you received RHOGAM after delivery. * During your care, you had a Rubella screen done to check for the presence of rubella antibodies in your blood. If your test was negative, you will receive a Rubella vaccine prior to discharge. This vaccine may cause a fever, soreness at the injection site and flu-like symptoms. If these symptoms persist, notify your health care practitioner. is not advised for three months after a Rubella vaccine. * Verbalizes understanding of car seat law as reviewed with patient nursing. * Car Seat hand-out given and reviewed with patient by nursing. * Shaken baby information reviewed with patient by nursing. Call you doctor if: * Heavy bleeding (saturating several pads an hour) or passing clots the size of your fist. * A fever >101 degrees F (38.3 degrees C) on two occasions four hours apart and/or chills. * Unusual pain in the pelvic or vaginal areas. Pain should improve each day . * Call the doctor for any increased redness, drainage or swelling around the incision and any pain unrelieved by prescribed pain medication. * Any signs or symptoms of phlebitis (possible blood clots forming in the veins): leg pain, warm, red or swollen area on leg. * "Baby Blues" lasting longer than two weeks. If you have any questions or concerns, call your health care practitioner at . FOLLOW-UP VISIT: * Incision check (staple removal) in 1 week. Please call doctor's office at to set up appointment. * Please call the office at to schedule a 6 week examination. It is important you keep this appointment. * It is important for you to make arrangements for either yearly or twice yearly check-ups thereafter. Pending Studies at Discharge: No Stand-Alone Forms: My [facility], Smoking Cessation Medications and DC Order Prescriptions: New oxycodone-acetaminophen [Percocet] 5-325 mg Tablet 1 tab PO Q4H PRN (Reason: pain) Qty: 10 0RF ibuprofen 600 mg Tablet 600 mg PO Q6H PRN (Reason: pain) Qty: 30 2RF Continued ascorbic acid (vitamin C) [Vitamin C] 250 mg Tablet,Chewable 500 mg PO QAM [id number] 1 mg Tablet 2 tab PO QAM azelaic acid 15 % Gel 1 applic TOPICAL QAM ferrous sulfate [iron] 325 mg (65 mg iron) Tablet 325 mg PO BID Discontinued aspirin 81 mg Capsule 81 mg PO QPM Discharge Orders: Discharge Order (Routine); Ordered 03/16/23 Ordered By: Aaron Reyna/Other Patient Handouts: Depression, Preventing Deep Vein Thrombosis, Section Dc Admission Data Admit Date/Time: 03/13/23 07:15 Attending Provider: Aaron Hampton Admit Provider: Aaron Hampton Primary Care Provider: Sally Radford Other Providers: Po Banks Other Interventions: Discharge Summary Assessment (RN) Last Done: 03/16/23 16:21 Coding Level of Care Code None Diagnoses
== END 2023-03-16 18:54 | disposition home or self-care (01) | DRG 787 ==
LOC: 4S1 07:15 → EDSTATUS 10:00 → 4E2 21:12